=== PATIENT | male | born 1985 | race African-American/Black ===

== ENCOUNTER 2021-03-29 04:43 | Emergency (ER) | payer MEDICARE, MEDICAID ==
[~2021-03-29] VITALS: Ht 162.6 cm; Wt 54.0 kg
[~2021-03-29 04:43] MED LIST: CLON0.1T22 PO; HYDR-3248 PO; INSU100C5 SQ; INSU100I29 SQ-INSULIN; INSU100V8 SQ; LISI5TAB7 PO; LORA-445 PO; LORA2TAB99 PO; ONDA4TAB7 PO; OXYC10TA6 PO; SEVE800T7 PO
--- NOTE | 2021-03-29 04:55 | NUR ---
[facility] FROM [facility]. PT C/O OF VOMITTING FOR LAST 2 WEEKS. STATES HE WAS VOMITTING BILE TODAY. PT BLOOD SUGAR WAS 502 AT [facility] AND 492 WITH [facility]. PT A&OX4, BREATHING EVEN AND UNLABORED, NADN. 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 12 UNITS INSULIN AT [facility]. LAST DIALYSIS WAS TUESDAY. RT ARM FISTULA 2 ASSISTED GUARDS AT BEDSIDE FOR SAFETY. BED IN LOW POSITION, RAILS ENGAGED. CALL LIGHT WITHIN REACH. PT HANDCUFFED AT WRISTS AND ANKLES. ATTACHED TO MONITORS. VSS. WCTM
--- NOTE | 2021-03-29 05:00 | NUR ---
PT ATTACHED TO CARD/SP02/BP MONITORS. VSS. GANDHI
[2021-03-29] MEDS ORDERED: MAALOX/HYOSCYAMINE/LIDOCAINE 45 ML BTL ONE (05:20)
[2021-03-29] MEDS ORDERED: PROMETHAZINE 25 MG/ML, 1ML ONE (05:20)
[2021-03-29] MEDS ORDERED: PROMETHAZINE 25 MG/ML, 1ML IM ONE (05:30)
[2021-03-29] MEDS ORDERED: MAALOX/HYOSCYAMINE/LIDOCAINE 45 ML BTL PO ONE (05:30)
[2021-03-29] MEDS ORDERED: INSULIN REGULAR 100 UNITS/ML, 3ML VIAL SQ-INSULIN ONE (05:30)
[2021-03-29 05:37] LABS: PH, VENOUS 7.382 pH (7.320-7.420)
[2021-03-29 05:38] LABS: O2 FLOW ROOM AIR L/min
[2021-03-29 05:43] LABS: MEAN CORPUSCULAR HGB CONC 33.2 g/dL (33.2-36.2); MEAN PLATELET VOLUME 7.1 fL (7.4-10.4); PLATELET COUNT 220 x10^3/uL (130-400); RED BLOOD COUNT 3.08 x10^6/uL (4.38-5.82); RED CELL DISTRIBUTION WIDTH 14.6 % (9.4-14.8)
[2021-03-29 05:49] LABS: ALANINE AMINOTRANSFERASE 22 U/L (12-78); ALBUMIN 3.6 g/dL (3.4-5.0); ANION GAP 13 mmol/L (5-15); CALCIUM 8.9 mg/dL (8.5-10.1); CHLORIDE 94 mmol/L (98-107)
[2021-03-29 05:51] LABS: ALKALINE PHOSPHATASE 126 U/L (45-117); BILIRUBIN,TOTAL 0.5 mg/dL (0.2-1.0); TOTAL PROTEIN 7.2 g/dL (6.4-8.2)
[2021-03-29] MEDS ORDERED: INSULIN GLARGINE 100 UNITS/ML, PEN SQ-INSULIN ONE (06:00)
--- NOTE | 2021-03-29 06:08 | NUR ---
BLOOD SUGAR 348
[2021-03-29 06:10] LABS: <PLATELET ESTIMATE> ADEQUATE; <PLT MORPHOLOGY> NORMAL PLT MORPH; BAND#(MANUAL) 0.14 x10^3/uL; BANDS%(MANUAL) 1 % (0-7); LYMPHS% (MANUAL) 8 % (22-44); MONOS#(MANUAL) 0.55 x10^3/uL (0.3-2.7); MONOS% (MANUAL) 4 % (2-9); SEG#(MANUAL) 11.92 x10^3/uL (1.8-6.8); SEGS% (MANUAL) 87 % (42-75)
[2021-03-29] MEDS ORDERED: INSULIN LISPRO 100 UNITS/ML, PEN ONE (06:11)
[2021-03-29 06:29] LABS: ACETONE, SERUM Negative (Negative)
[2021-03-29 06:45] VITALS: BP 94/59
[2021-03-30] MEDS ORDERED: OXYC-380 PO (18:05)
[2021-03-30] MEDS ORDERED: INSU100I18 SQ-INSULIN (18:05)
[2021-03-30] MEDS ORDERED: INSU100V8 SQ (18:05)
[2021-03-30] MEDS ORDERED: SEVE800T7 PO (18:05)
== END 2021-03-29 07:07 | disposition home or self-care (01) ==
LOC: ED 07:01
DX: R11.2 Nausea with vomiting, unspecified (principal); E10.65 Type 1 diabetes mellitus with hyperglycemia; E10.22 Type 1 diabetes mellitus with diabetic chronic kidney disease; I12.0 Hypertensive chronic kidney disease with stage 5 chronic kidney disease or end stage renal disease; N18.6 End stage renal disease; Z99.2 Dependence on renal dialysis
CPT/HCPCS: 36415; 80053; 82010; 82803; 82962; 83690; 85025; 93005; 96372; 99284; J1815; J2550

== ENCOUNTER 2021-03-30 11:59 | Inpatient (IN) | payer MEDICAID, OTHER ==
[~2021-03-30] VITALS: Ht 162.6 cm; Wt 64.0 kg
--- NOTE | 2021-03-30 12:20 | NUR ---
PT IN HOSPITAL GOWN. OFFICER AT BEDSIDE.
[2021-03-30 12:46] LABS: ALANINE AMINOTRANSFERASE 22 U/L (12-78); ALBUMIN 3.5 g/dL (3.4-5.0); ANION GAP 14 mmol/L (5-15); CALCIUM 8.9 mg/dL (8.5-10.1); CHLORIDE 93 mmol/L (98-107)
[2021-03-30 12:49] LABS: ALKALINE PHOSPHATASE 109 U/L (45-117); BILIRUBIN,TOTAL 0.5 mg/dL (0.2-1.0)
[2021-03-30 12:54] LABS: BASOPHILS % (AUTO) 1 % (0-1); EOSINOPHILS % (AUTO) 0 % (1-7); LYMPHOCYTES % (AUTO) 6 % (22-44); MEAN CORPUSCULAR HEMOGLOBIN 32.1 pg (27.5-34.5); MEAN PLATELET VOLUME 7.3 fL (7.4-10.4); MONOCYTES % (AUTO) 5 % (2-9); NEUTROPHILS % (AUTO) 88 % (42-75); PLATELET COUNT 228 x10^3/uL (130-400); RED BLOOD COUNT 3.38 x10^6/uL (4.38-5.82); RED CELL DISTRIBUTION WIDTH 14.9 % (9.4-14.8)
--- NOTE | 2021-03-30 13:37 | NUR ---
PT AWAITING EVAL FROM DR. PIMENTEL FOR DIALYSIS.
--- NOTE | 2021-03-30 13:38 | NUR ---
DR. PIMENTEL JUST SAW PT.
[2021-03-30] MEDS ORDERED: ARANESP 25 MCG/ML **ESRD SQ SCH (14:00)
--- NOTE | 2021-03-30 14:11 | NUR ---
BREAK RN: PT LAYING ON GURNEY GURNEY WITH EYES CLOSED C/O RT UPPER TORSO PAIN- ERP AWARE (NO NEW ORDERS AT THIS TIME), NO N/V OBSERVED, NAD, COOPERATIVE & RESPOMDS APPROP TO STAFF, ICE PACK GIVEN & OTHER COMFORT MEASURES PROVIDED, OFFICER AT BS, CALL LIGHT WTIHIN REACH.
[2021-03-30 14:33] LABS: CALCIUM 9.3 mg/dL (8.5-10.1)
--- NOTE | 2021-03-30 14:41 | NUR ---
REPORT GIVEN TO SHIVANI MUHAMMAD
[2021-03-30] MEDS ORDERED: ACETAMINOPHEN 325 MG TABLET PO PRN (15:30)
[2021-03-30 15:54] VITALS: BP 114/71
[2021-03-30] MEDS: INSULIN LISPRO 100 UNITS/ML, PEN SQ-INSULIN SCH ×2 (17:05→22:26)
[2021-03-30] MEDS ORDERED: SEVE800T7 PO (18:05)
[2021-03-30] MEDS ORDERED: INSU100V8 SQ (18:05)
[2021-03-30] MEDS ORDERED: INSU100I18 SQ-INSULIN (18:05)
[2021-03-30] MEDS ORDERED: OXYC-380 PO (18:05)
[2021-03-30 18:29] VITALS: BP 109/70
[2021-03-30 20:23] LABS: TROPONIN I < 0.015 ng/mL (0.000-0.045)
[2021-03-30] MEDS: INSULIN GLARGINE 100 UNITS/ML, PEN SQ-INSULIN SCH (22:27)
[2021-03-31 00:43] VITALS: BP 96/54
[2021-03-31 01:57] LABS: BASOPHILS % (AUTO) 1 % (0-1); EOSINOPHILS % (AUTO) 0 % (1-7); LYMPHOCYTES % (AUTO) 7 % (22-44); MEAN CORPUSCULAR HEMOGLOBIN 32.8 pg (27.5-34.5); MEAN CORPUSCULAR HGB CONC 33.5 g/dL (33.2-36.2); MONOCYTES % (AUTO) 7 % (2-9); NEUTROPHILS % (AUTO) 86 % (42-75); PLATELET COUNT 226 x10^3/uL (130-400); RED BLOOD COUNT 3.21 x10^6/uL (4.38-5.82); RED CELL DISTRIBUTION WIDTH 14.9 % (9.4-14.8)
[2021-03-31 02:00] LABS: TROPONIN I < 0.015 ng/mL (0.000-0.045)
[2021-03-31 02:02] LABS: ALBUMIN 3.4 g/dL (3.4-5.0); ANION GAP 11 mmol/L (5-15); CALCIUM 8.9 mg/dL (8.5-10.1); CHLORIDE 94 mmol/L (98-107)
[2021-03-31 07:37] VITALS: BP 115/71
[2021-03-31] MEDS: INSULIN LISPRO 100 UNITS/ML, PEN SQ-INSULIN SCH ×4 (08:11→18:37)
[2021-03-31] MEDS: PANTOPRAZOLE 40 MG IV IVPush SCH (08:11)
[2021-03-31 11:01] LABS: TROPONIN I < 0.015 ng/mL (0.000-0.045)
[2021-03-31 14:07] VITALS: BP 95/59
[2021-03-31 19:11] VITALS: BP 115/69
[2021-03-31] MEDS: INSULIN GLARGINE 100 UNITS/ML, PEN SQ-INSULIN SCH ×2 (20:38→23:50)
[2021-04-01] MEDS: ONDANSETRON 2MG/ML, 2ML IVPush PRN ×2 (00:08→11:05)
[2021-04-01 00:11] VITALS: BP 125/65
[2021-04-01] MEDS ORDERED: INSULIN LISPRO 100 UNITS/ML, PEN SQ-INSULIN SCH (00:15)
[2021-04-01 06:16] LABS: ALBUMIN 3.3 g/dL (3.4-5.0); ANION GAP 11 mmol/L (5-15); CALCIUM 8.8 mg/dL (8.5-10.1); CHLORIDE 93 mmol/L (98-107)
[2021-04-01 06:20] LABS: BASOPHILS % (AUTO) 1 % (0-1); EOSINOPHILS % (AUTO) 0 % (1-7); LYMPHOCYTES % (AUTO) 13 % (22-44); MEAN CORPUSCULAR HEMOGLOBIN 32.7 pg (27.5-34.5); MEAN CORPUSCULAR HGB CONC 33.4 g/dL (33.2-36.2); MEAN PLATELET VOLUME 7.3 fL (7.4-10.4); MONOCYTES % (AUTO) 6 % (2-9); NEUTROPHILS % (AUTO) 80 % (42-75); PLATELET COUNT 216 x10^3/uL (130-400); RED CELL DISTRIBUTION WIDTH 15.2 % (9.4-14.8)
[2021-04-01] MEDS: INSULIN LISPRO 100 UNITS/ML, PEN SQ-INSULIN SCH ×4 (07:00→21:47)
[2021-04-01 07:30] VITALS: BP 105/64
[2021-04-01] MEDS: PANTOPRAZOLE 40 MG IV IVPush SCH (07:52)
[2021-04-01] MEDS ORDERED: REGADENOSON 0.4 MG/5 ML SYRINGE ONE (09:57)
[2021-04-01 14:09] VITALS: BP 123/81
[2021-04-01] MEDS ORDERED: OMEP20TA62 PO (15:55)
[2021-04-01 20:00] VITALS: BP 111/71
[2021-04-01] MEDS: INSULIN GLARGINE 100 UNITS/ML, PEN SQ-INSULIN SCH (21:48)
== END 2021-04-01 22:59 | disposition home or self-care (01) | DRG 313 ==
LOC: ED 13:39 → MERGE 13:40 → EDIP 13:40 → 4EST 14:51
PROVIDERS: ADMIT Hospitalist; ATTEND Hospitalist
DX: R07.9 Chest pain, unspecified (principal); N18.6 End stage renal disease; E87.1 Hypo-osmolality and hyponatremia; I12.0 Hypertensive chronic kidney disease with stage 5 chronic kidney disease or end stage renal disease; Q21.0 Ventricular septal defect; Q21.1 Atrial septal defect; Q61.3 Polycystic kidney, unspecified; T82.848A Pain due to vascular prosthetic devices, implants and grafts, initial encounter; G89.29 Other chronic pain; M54.9 Dorsalgia, unspecified; R79.89 Other specified abnormal findings of blood chemistry; D63.1 Anemia in chronic kidney disease; E11.22 Type 2 diabetes mellitus with diabetic chronic kidney disease; E11.65 Type 2 diabetes mellitus with hyperglycemia; E11.21 Type 2 diabetes mellitus with diabetic nephropathy; E87.5 Hyperkalemia; Y83.2 Surgical operation with anastomosis, bypass or graft as the cause of abnormal reaction of the patient, or of later complication, without mention of misadventure at the time of the procedure; Z76.82 Awaiting organ transplant status; Z79.891 Long term (current) use of opiate analgesic; Z99.2 Dependence on renal dialysis; Z79.4 Long term (current) use of insulin
CPT/HCPCS: 36415; 74176; 78452; 80053; 80069; 82306; 82310; 82728; 82962; 83540; 83550; 83735; 83970; 84100; 84484; 84550; 85025; 90935; 93005; 93017; 93306; 93356; 99285; G0378; J0882; J2405; J2785; A9502; C9113; C9898; J1815

== ENCOUNTER 2021-05-04 08:28 | Emergency (ER) | payer MEDICARE, MEDICAID, OTHER ==
[~2021-05-04] VITALS: Ht 160 cm; Wt 55.0 kg
[~2021-05-04 08:28] MED LIST changes: +INSU100I18 SQ-INSULIN; +OMEP20TA62 PO; +OXYC-380 PO
--- NOTE | 2021-05-04 08:42 | NUR ---
Lab here to draw blood, pt requesting lab be drawn by accessing dialysis cath. Informed pt ER does not access dialysis cath's that the lab can draw from another area. Pt in agreement of this. at bedside, pt shackled to lexa.
[2021-05-04 09:01] LABS: BASOPHILS % (AUTO) 3 % (0-1); EOSINOPHILS % (AUTO) 2 % (1-7); LYMPHOCYTES % (AUTO) 22 % (22-44); MEAN CORPUSCULAR HEMOGLOBIN 32.4 pg (27.5-34.5); MEAN CORPUSCULAR HGB CONC 34.4 g/dL (33.2-36.2); MEAN PLATELET VOLUME 7.5 fL (7.4-10.4); MONOCYTES % (AUTO) 8 % (2-9); NEUTROPHILS % (AUTO) 66 % (42-75); PLATELET COUNT 257 x10^3/uL (130-400); RED BLOOD COUNT 3.07 x10^6/uL (4.38-5.82); RED CELL DISTRIBUTION WIDTH 14.9 % (9.4-14.8)
[2021-05-04 09:11] LABS: ALBUMIN 3.9 g/dL (3.4-5.0); ANION GAP 7 mmol/L (5-15); CALCIUM 9.6 mg/dL (8.5-10.1); CHLORIDE 96 mmol/L (98-107)
--- NOTE | 2021-05-04 09:20 | NUR ---
REPORT TAKEN FROM JB RUIZ. 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 PT IS A&O, RESPS EVEN AND UNLABORED, DENIES PAIN. EKG COMPLETED BY EDT. ALL LABS RESULTED. CHART UP FOR RECHECK, AWAITING MD AND DISPO.
--- NOTE | 2021-05-04 10:00 | NUR ---
pt resting on gurney, a&o, resps even and unlabored. pt had c/o lump under right eye, present for past few days. lump in question was viewed with ultrasound by [facility] [employer]. pt given sprite. all monitors in place. vss. awaiting nephro consult and dispo at this time.
--- NOTE | 2021-05-04 10:51 | NUR ---
WITH ROUNDING PATIENT REPORTING "I FEEL LIKE MY BLOOD SUGAR IS LOW. 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 ERP MADE AWARE. PATIENT TOLERATING PO AND WITHOUT PIV. PROVIDED WITH JUICE, CRACKER AND PEANUT BUTTER, AND ENERGY BAR. WILL RE-CHECK FSBS SHORTLY Addendum: 05/04/21 at 1128 by DIYA fsbs 034 (thirty-four) not 134
--- NOTE | 2021-05-04 11:28 | NUR ---
Post eating- patient reports "i feel much better." Repeat fsbs 134 Primary rn: graciela made aware
--- NOTE | 2021-05-04 11:42 | NUR ---
pt feeling better with oral glucose intake, protein also provided. pt ambultory to bathroom for bm, gait steady. ravinderurbassem accompanied. pt now back in bed. pt a&o, resps even and unlabored. awaiting further orders from .
[2021-05-04 12:23] VITALS: BP 146/90
--- NOTE | 2021-05-04 12:24 | NUR ---
dc orders received. 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 pt has no complaint at dc. pt ambulatory to dc desk with steady gait, accompanied by law enforcement.
== END 2021-05-04 12:25 ==
LOC: ED 09:34
DX: E10.22 Type 1 diabetes mellitus with diabetic chronic kidney disease (principal); I12.0 Hypertensive chronic kidney disease with stage 5 chronic kidney disease or end stage renal disease; N18.6 End stage renal disease; Z99.2 Dependence on renal dialysis; R22.0 Localized swelling, mass and lump, head; L53.8 Other specified erythematous conditions; E87.5 Hyperkalemia; Z87.891 Personal history of nicotine dependence
CPT/HCPCS: 36415; 80048; 82040; 82962; 85025; 93005; 99285

== ENCOUNTER 2021-05-09 13:46 | Emergency (ER) | payer MEDICARE, MEDICAID, OTHER | END 2021-05-09 13:53 | disposition home or self-care (01) | LOC: ED 13:47 | DX: I12.0 Hypertensive chronic kidney disease with stage 5 chronic kidney disease or end stage renal disease (principal); N18.6 End stage renal disease; E11.22 Type 2 diabetes mellitus with diabetic chronic kidney disease | CPT/HCPCS: 99281 ==

== ENCOUNTER 2021-05-09 13:48 | Emergency (ER) | payer MEDICARE, OTHER ==
[~2021-05-09] VITALS: Ht 162.6 cm; Wt 57.3 kg
[2021-05-09 14:58] LABS: ANION GAP 10 mmol/L (5-15); CALCIUM 8.5 mg/dL (8.5-10.1); CHLORIDE 95 mmol/L (98-107); CREATININE 9.57 mg/dL (0.7-1.3)
[2021-05-09 15:40] VITALS: BP 132/89
--- NOTE | 2021-05-09 15:44 | NUR ---
PT REC'VD DISHARGE INSTRUCTIONS AND EDUCATION. PT HAD NO FURTHER QUESTIONS. PT IN CUSTODY OF LAW ENFORCEMENT AMBULATED TO DC AREA, STEADY GAIT.
== END 2021-05-09 16:36 | disposition home or self-care (01) ==
LOC: ED 13:56
DX: I12.0 Hypertensive chronic kidney disease with stage 5 chronic kidney disease or end stage renal disease (principal); E11.22 Type 2 diabetes mellitus with diabetic chronic kidney disease; N18.6 End stage renal disease; Z99.2 Dependence on renal dialysis; Z87.891 Personal history of nicotine dependence
CPT/HCPCS: 36415; 80048; 99283

== ENCOUNTER 2021-06-24 10:58 | Inpatient (IN) | payer MEDICARE, MEDICAID ==
[~2021-06-24] VITALS: Ht 162.6 cm; Wt 59.8 kg
[~2021-06-24 10:58] MED LIST changes: -OXYC-380 PO; +OXYC-501 PO
--- NOTE | 2021-06-24 11:00 | NUR ---
PT PLACED ON BP CUFF, PULSE OX. VSS. WARM BLANKET PROVIDED. GUARD AT BS, CALL LIGHT WITHIN REACH.
[2021-06-24 11:45] LABS: BASOPHILS % (AUTO) 1 % (0-1); EOSINOPHILS % (AUTO) 2 % (1-7); LYMPHOCYTES % (AUTO) 20 % (22-44); MEAN CORPUSCULAR HEMOGLOBIN 31.8 pg (27.5-34.5); MEAN CORPUSCULAR HGB CONC 33.7 g/dL (33.2-36.2); MEAN PLATELET VOLUME 7.1 fL (7.4-10.4); MONOCYTES % (AUTO) 11 % (2-9); NEUTROPHILS % (AUTO) 67 % (42-75); PLATELET COUNT 232 x10^3/uL (130-400); RED BLOOD COUNT 2.42 x10^6/uL (4.38-5.82); RED CELL DISTRIBUTION WIDTH 14.3 % (9.4-14.8)
[2021-06-24 11:54] LABS: ALBUMIN 3.6 g/dL (3.4-5.0); ANION GAP 16 mmol/L (5-15); CALCIUM 8.9 mg/dL (8.5-10.1); CHLORIDE 93 mmol/L (98-107)
--- NOTE | 2021-06-24 12:11 | NUR ---
ALL RESULTS BACK, PT FOR RECHECK.
--- NOTE | 2021-06-24 13:29 | NUR ---
AWAITING NEPHROLOGY TO SEE.
--- NOTE | 2021-06-24 14:21 | NUR ---
CONTINUE TO AWAIT NEPHROLOGY CALL BACK.
--- NOTE | 2021-06-24 14:40 | NUR ---
PT REQUESTING BLOOD SUGAR TO BE CHECKED, "I'M A BRITTLE DIABETIC". PREVIOUS LAB DRAW GLUCOSE 116. FS OBTAINED, GLUCOSE 47. ERP NOTIFIED. PT GIVEN JUICE AND MEAL TRAY WITH CARBS. IV BEING PLACED BY PUMPER HAND.
[2021-06-24] MEDS ORDERED: DEXTROSE 50%, 50ML SYRINGE ONE (14:48)
[2021-06-24] MEDS ORDERED: DEXTROSE 50%, 50ML SYRINGE IVPush ONE (15:00)
--- NOTE | 2021-06-24 15:06 | NUR ---
PT ATE ALL OF MEAL TRAY. IV PLACED, AMP D50 GIVEN PER ERP ORDER. CALL LIGHT WITHIN REACH.
--- NOTE | 2021-06-24 15:16 | NUR ---
FS 331, REPORTED TO ERP. PT READY TO GO TO DIALYSIS, TO BE ADMIT.
--- NOTE | 2021-06-24 15:35 | NUR ---
PT TRANSPORTED TO DIALYSIS AND FOLLOWING TO MED TELE. CHART TUBED TO [employer] TELE.
[2021-06-24] MEDS ORDERED: CYCLOBENZAPRINE 10 MG TABLET PO PRN (16:00)
[2021-06-24] MEDS ORDERED: GABAPENTIN 300 MG CAPSULE PO PRN (16:00)
[2021-06-24] MEDS ORDERED: LISINOPRIL 10 MG TABLET PO ONE (16:00)
[2021-06-24] MEDS ORDERED: MELATONIN 5 MG TABLET PO PRN (16:00)
[2021-06-24] MEDS ORDERED: ONDANSETRON 2MG/ML, 2ML IVPush PRN (16:00)
[2021-06-24] MEDS ORDERED: ACETAMINOPHEN 325 MG TABLET PO PRN (16:00)
[2021-06-24] MEDS ORDERED: ENALAPRILAT 1.25 MG/ML, 2ML IVPush PRN (16:00)
[2021-06-24 17:27] LABS: % IRON SATURATION 22 % (20-55); IRON LEVEL 63 mcg/dL (65-175); TOTAL IRON BINDING CAPACITY 292 mcg/dL (250-450)
[2021-06-24 17:30] LABS: TROPONIN I < 0.015 ng/mL (0.000-0.045)
[2021-06-24] MEDS: INSULIN LISPRO 100 UNITS/ML, PEN SQ-INSULIN SCH ×2 (18:28→20:58)
[2021-06-24] MEDS: HEPARIN 5,000 UNITS/ML, 1ML SQ SCH ×2 (18:28→20:57)
[2021-06-24 18:30] VITALS: BP 134/82
[2021-06-24] MEDS: SEVELAMER CARBONATE 800MG TAB PO SCH (20:56)
[2021-06-24] MEDS ORDERED: INSULIN GLARGINE 100 UNITS/ML, PEN SQ-INSULIN SCH (21:00)
[2021-06-24] MEDS: TRAZODONE 50MG TABLET PO PRN (22:04)
[2021-06-24 23:45] LABS: TROPONIN I < 0.015 ng/mL (0.000-0.045)
[2021-06-25 00:33] VITALS: BP 115/75
[2021-06-25] MEDS: HEPARIN 5,000 UNITS/ML, 1ML SQ SCH ×3 (04:53→23:00)
[2021-06-25] MEDS: INSULIN LISPRO 100 UNITS/ML, PEN SQ-INSULIN SCH ×6 (07:00→23:01)
[2021-06-25] MEDS ORDERED: INSULIN LISPRO 100 UNITS/ML, PEN SQ-INSULIN SCH (07:00)
[2021-06-25 07:17] VITALS: BP 133/85
[2021-06-25] MEDS: SEVELAMER CARBONATE 800MG TAB PO SCH ×3 (08:21→17:13)
[2021-06-25 08:23] VITALS: BP 127/82
[2021-06-25] MEDS: SENNA/DOCUSATE TABLET PO SCH (08:23)
[2021-06-25 10:37] LABS: ALANINE AMINOTRANSFERASE 16 U/L (12-78); ALBUMIN 3.2 g/dL (3.4-5.0); ANION GAP 12 mmol/L (5-15); CALCIUM 8.5 mg/dL (8.5-10.1); CHLORIDE 94 mmol/L (98-107)
[2021-06-25 10:39] LABS: ALKALINE PHOSPHATASE 182 U/L (45-117); BILIRUBIN,TOTAL 0.3 mg/dL (0.2-1.0); TOTAL PROTEIN 7.3 g/dL (6.4-8.2)
[2021-06-25] MEDS ORDERED: DEXTROSE 50%, 50ML SYRINGE ONE (10:54)
[2021-06-25] MEDS ORDERED: DEXTROSE 4 GM TAB.CHEW PO PRN (11:00)
[2021-06-25] MEDS ORDERED: GLUCAGON 1 MG IM PRN (11:00)
[2021-06-25] MEDS ORDERED: DEXTROSE 50%, 50ML SYRINGE IVPush PRN (11:00)
[2021-06-25] MEDS: GABAPENTIN 300 MG CAPSULE PO PRN ×3 (12:30→23:00)
[2021-06-25 15:11] VITALS: BP 135/84
[2021-06-25] MEDS ORDERED: INSULIN GLARGINE 100 UNITS/ML, PEN SQ-INSULIN SCH (21:00)
[2021-06-25 21:37] VITALS: BP 151/81
[2021-06-25] MEDS: SODIUM CHLORIDE FLUSH 10ML SYR IVF SCH (23:00)
[2021-06-25] MEDS: TRAZODONE 50MG TABLET PO PRN (23:00)
[2021-06-26 01:10] VITALS: BP 107/72
[2021-06-26 04:19] LABS: BASOPHILS % (AUTO) 1 % (0-1); EOSINOPHILS % (AUTO) 2 % (1-7); LYMPHOCYTES % (AUTO) 15 % (22-44); MEAN CORPUSCULAR HGB CONC 34.1 g/dL (33.2-36.2); MEAN PLATELET VOLUME 7.3 fL (7.4-10.4); MONOCYTES % (AUTO) 7 % (2-9); NEUTROPHILS % (AUTO) 74 % (42-75); PLATELET COUNT 215 x10^3/uL (130-400); RED BLOOD COUNT 2.67 x10^6/uL (4.38-5.82); RED CELL DISTRIBUTION WIDTH 14.9 % (9.4-14.8)
[2021-06-26 04:26] LABS: ALBUMIN 3.7 g/dL (3.4-5.0); ANION GAP 11 mmol/L (5-15); CALCIUM 8.6 mg/dL (8.5-10.1); CHLORIDE 88 mmol/L (98-107)
[2021-06-26 04:32] LABS: ALANINE AMINOTRANSFERASE 20 U/L (12-78); ALKALINE PHOSPHATASE 199 U/L (45-117); BILIRUBIN,TOTAL 0.3 mg/dL (0.2-1.0); CREATININE 8.26 mg/dL (0.7-1.3)
[2021-06-26] MEDS: HEPARIN 5,000 UNITS/ML, 1ML SQ SCH ×3 (05:33→22:18)
[2021-06-26] MEDS: INSULIN LISPRO 100 UNITS/ML, PEN SQ-INSULIN SCH ×6 (06:52→22:17)
[2021-06-26] MEDS ORDERED: INSULIN REGULAR 100 UNITS/ML, 3ML VIAL IVPush ONE (07:30)
[2021-06-26] MEDS: SEVELAMER CARBONATE 800MG TAB PO SCH ×3 (08:06→17:12)
[2021-06-26] MEDS: SODIUM CHLORIDE FLUSH 10ML SYR IVF SCH ×2 (08:06→22:17)
[2021-06-26] MEDS: INSULIN GLARGINE 100 UNITS/ML, PEN SQ-INSULIN SCH ×2 (08:12→22:18)
[2021-06-26] MEDS: SENNA/DOCUSATE TABLET PO SCH (08:15)
[2021-06-26 08:20] VITALS: BP 122/82
[2021-06-26] MEDS ORDERED: INSULIN GLARGINE 100 UNITS/ML, PEN SQ-INSULIN SCH (09:00)
[2021-06-26] MEDS ORDERED: CALCITRIOL 0.25 MCG CAPSULE PO SCH (09:00)
[2021-06-26 12:26] VITALS: BP 111/57
[2021-06-26 19:48] VITALS: BP 116/70
[2021-06-26] MEDS: TRAZODONE 50MG TABLET PO PRN (22:18)
[2021-06-27 01:29] VITALS: BP 116/75
[2021-06-27 04:45] LABS: ANION GAP 9 mmol/L (5-15); CALCIUM 9.5 mg/dL (8.5-10.1); CHLORIDE 92 mmol/L (98-107); CREATININE 7.72 mg/dL (0.7-1.3)
[2021-06-27] MEDS: HEPARIN 5,000 UNITS/ML, 1ML SQ SCH ×2 (06:01→17:08)
[2021-06-27] MEDS: INSULIN LISPRO 100 UNITS/ML, PEN SQ-INSULIN SCH ×6 (07:00→17:08)
[2021-06-27 07:50] VITALS: BP 110/68
[2021-06-27] MEDS: SEVELAMER CARBONATE 800MG TAB PO SCH ×3 (08:54→17:07)
[2021-06-27] MEDS: SODIUM CHLORIDE FLUSH 10ML SYR IVF SCH (08:55)
[2021-06-27] MEDS: SENNA/DOCUSATE TABLET PO SCH (08:55)
[2021-06-27] MEDS ORDERED: GABA300C PO (09:09)
[2021-06-27] MEDS ORDERED: INSU100I13 SQ-INSULIN (09:09)
[2021-06-27] MEDS ORDERED: CALC0.25 PO (09:09)
[2021-06-27] MEDS: INSULIN GLARGINE 100 UNITS/ML, PEN SQ-INSULIN SCH (09:32)
[2021-06-27 13:09] VITALS: BP 111/70
[2021-06-27] MEDS ORDERED: INSU100I18 SQ-INSULIN (13:14)
== END 2021-06-27 18:37 | DRG 640 ==
LOC: ED 11:19 → EDIP 15:04 → SUATTDRO 15:08 → 4WST 18:28
PROVIDERS: ADMIT Internal Medicine; ATTEND Hospitalist
PROC: 5A1D70Z Performance of Urinary Filtration, Intermittent, Less than 6 Hours Per Day (ICD-10-PCS; 2021-06-24)
PROC: 5A1D70Z Performance of Urinary Filtration, Intermittent, Less than 6 Hours Per Day (ICD-10-PCS; 2021-06-25)
PROC: 5A1D70Z Performance of Urinary Filtration, Intermittent, Less than 6 Hours Per Day (ICD-10-PCS; principal; 2021-06-27)
DX: E87.70 Fluid overload, unspecified (principal); J96.01 Acute respiratory failure with hypoxia; N18.6 End stage renal disease; I12.0 Hypertensive chronic kidney disease with stage 5 chronic kidney disease or end stage renal disease; J81.1 Chronic pulmonary edema; Q21.1 Atrial septal defect; E87.1 Hypo-osmolality and hyponatremia; D63.1 Anemia in chronic kidney disease; E10.22 Type 1 diabetes mellitus with diabetic chronic kidney disease; E10.649 Type 1 diabetes mellitus with hypoglycemia without coma; E78.5 Hyperlipidemia, unspecified; E87.5 Hyperkalemia; E88.89 Other specified metabolic disorders; I25.10 Atherosclerotic heart disease of native coronary artery without angina pectoris; Z99.2 Dependence on renal dialysis; Z83.3 Family history of diabetes mellitus
CPT/HCPCS: 36415; 71045; 80048; 80053; 82040; 82306; 82728; 82947; 82962; 83036; 83540; 83550; 83735; 83970; 84484; 85025; 85379; 86705; 86706; 87340; 90935; 96374; 99285; G0378; J1644; J1815